=== PATIENT | female | born 1935 | race Caucasian/White ===

== ENCOUNTER 2018-03-20 11:02 | Observation (INO) ==
--- NOTE | 2018-03-20 11:35 | Emergency Department Note ---
Disposition Clinical Impression: Symptomatic bradycardia Disposition: Admitted As Inpatient Condition: Good Referrals: Daniella Cosme MD [Primary Care Provider] - Forms: ED Satisfaction Letter Time of Disposition: 13:05 Arrhythmia/Palpitations HPI - General Chief Complaint: ED Arrhythmia/Palpitations Stated Complaint: "heart races sometimes and bryanna" Time Seen by Provider: 03/20/18 11:10 Source: patient Limitations: no limitations Nursing Notes Reviewed: Yes Vital Signs Reviewed: Yes - History of Present Illness HPI Narrative: 82-year-old female presents emergency room for symptomatic bradycardia and palpitations. She states her symptoms started over the weekend where she at times can feel her heart was racing and then also felt like her heart rate was slow. She took her vital signs last night and noted her heart rate to be 40 within normal blood pressure. She felt extremely dizzy and lightheaded and did not feel well. She did not have any chest pain. She does have a history of open-heart surgery as well as a history of one stent. She does follow with focal cardiology. At this moment, she states she feels pretty well. She has no chest pain complaints. She denies any dyspnea on exertion or shortness of breath at this time but states she is very short of breath during these spells. she does take a beta john for BP. - Related Data Home Medications Medication Instructions Recorded Confirmed Aspirin [Aspirin] 81 mg PO DAILY 12/19/17 03/20/18 C,E,Zinc,Copper 11/Qifwu3g/Lut 1 cap PO DAILY 12/19/17 03/20/18 [Ocuvite Adult 50 Plus Softgel] Cetirizine HCl [Cetirizine HCl] 5 mg PO DAILY PRN 12/19/17 03/20/18 Clopidogrel [Plavix] 75 mg PO DAILY 12/19/17 03/20/18 Diclofenac Sodium [Diclofenac 1 appl TP TID 12/19/17 03/20/18 Sodium] Furosemide [Lasix] 20 mg PO DAILY 12/19/17 03/20/18 Metoprolol Succinate [Toprol Xl] 25 mg PO HS 12/19/17 03/20/18 Metoprolol Succinate [Toprol Xl] 50 mg PO QAM 12/19/17 03/20/18 Niacin [Niaspan] 2,000 mg PO HS 12/19/17 03/20/18 [place]-3 Acid Ethyl Esters [Lovaza] 2 gm PO BID 12/19/17 03/20/18 Ramipril [Altace] 5 mg PO DAILY 12/19/17 03/20/18 Allergies Allergy/AdvReac Type Severity Reaction Status Date / Time [id number] Reductase AdvReac Cramping Verified 12/19/17 12:18 Inhibitor of the [Statins] Muscles tramadol AdvReac Nausea Verified 12/19/17 12:18 All systems ED: reviewed and negative except as stated. Constitutional: Reports: as per HPI Eyes: Reports: as per HPI ENT ED: Reports: as per HPI Cardiovascular: Reports: palpitations, other (lightheaded) Respiratory: Reports: as per HPI Gastrointestinal: Denies: abdominal pain, nausea, vomiting Genitourinary: Reports: as per HPI Musculoskeletal: Reports: as per HPI Integumentary: Reports: as per HPI Neurological: Reports: as per HPI Psychiatric: Reports: as per HPI Endocrine: Reports: as per HPI Allergic/Immunologic: Reports: as per HPI Past Medical History - Past Medical History Medical history: Reports: atrial fibrillation, CHF, coronary artery disease, GERD, hyperlipidemia, hypertension Psychiatric history: Reports: no psych history - Social History Smoking Status: Never smoker Smokeless Tobacco Status: No Alcohol use: Reports: none Drug use: Reports: none Physical Exam - General Limitations: no limitations General appearance: alert - Head Head exam: atraumatic, normocephalic - Eye Eye exam: Present: normal appearance - ENT ENT exam: normal exam - Neck Neck exam: Present: normal inspection - Chest Chest inspection: Present: normal inspection, symmetric chest wall rise - Respiratory Respiratory exam: Present: normal lung sounds bilaterally. Absent: respiratory distress, wheezes - Cardiovascular Cardiovascular exam: Present: regular rate, normal rhythm, normal heart sounds - Abdominal Exam Abdominal exam: Present: soft, Non-Tender, normal bowel sounds - Extremities Exam Extremities exam: Present: normal inspection, normal capillary refill. Absent: tenderness - Neurological Exam Neurological exam: Present: alert, oriented X3 - Psychiatric Psychiatric exam: Present: normal affect - Skin Skin exam: Present: warm, dry, intact Course Vital Signs Temperature 97.5 F L 03/20/18 11:05 Pulse Rate 75 03/20/18 11:05 Respiratory Rate 16 03/20/18 11:05 Blood Pressure 176/95 03/20/18 11:05 O2 Sat by Pulse Oximetry 96 03/20/18 11:05 Temperature 97.5 F L 03/20/18 11:21 Pulse Rate 75 03/20/18 11:21 Respiratory Rate 16 03/20/18 11:21 Blood Pressure 176/95 03/20/18 11:21 O2 Sat by Pulse Oximetry 97 03/20/18 11:21 Oxygen Delivery Oxygen Delivery Room Air Arrhythmia/Palpitations - [facility] Narrative Medical decision making narrative: Workup in the ER is unremarkable. Patient will be admitted for symptomatic bradycardia. All of her lab work appears unremarkable. - Medical Records Medical records reviewed: Yes I reviewed the patient's medical records. - Lab Data Lab results reviewed: Yes I reviewed the patient's lab results. Result diagrams: 03/20/18 11:43 03/20/18 11:43 Lab Results 03/20/18 03/20/18 03/20/18 Range/Units 11:43 11:43 11:43 WBC 5.6 (4.3-11.1) K/mcL RBC 4.53 (3.82-4.97) M/mcL Hgb 13.4 (11.5-15.4) g/dL Hct 40.7 (35.3-44.9) % MCV 89.8 (83.0-100.0) fL MCH 29.6 (28.0-33.3) pg MCHC 32.9 (31.6-35.5) g/dL RDW 13.7 (11.5-14.5) % Plt Count 183 (140-400) K/mcL MPV 10.7 (9.4-12.4) fL Immature Gran % 0.2 (0-4) % Seg Neutrophils % 57.7 % Lymphocytes % 29.5 % Monocytes % 9.8 % Eosinophils % 2.3 % Basophils % 0.5 % Neutrophils # 3.2 (1.6-8.9) K/mcL Lymphocytes # 1.7 (0.6-4.6) K/mcL Monocytes # 0.6 (0.0-1.3) K/mcL Eosinophils # 0.1 (0.0-0.6) K/mcL Basophils # 0.0 (0.0-0.2) K/mcL PT 12.4 H (9.4-12.1) Seconds INR 1.1 APTT 28.9 (26.0-36.0) Seconds Sodium 139 (136-145) mEq/L Potassium 3.9 (3.5-5.1) mEq/L Chloride 103 (98-107) mEq/L Carbon Dioxide 27 (23-29) mEq/L BUN 16 (8-23) mg/dL Creatinine 0.80 (0.60-1.20) mg/dL Est GFR ( Amer) > 60 (> 60) Est GFR (Non-Af Amer) > 60 (> 60) BUN/Creatinine Ratio 20 (6-26) Glucose 113 H (70-105) mg/dL Calculated Osmolality 290 (280-300) Calcium 9.4 (8.6-10.3) mg/dL Magnesium 1.8 (1.6-2.6) mg/dL Troponin I < 0.03 (< 0.04) ng/mL TSH 3.324 (0.340-5.600) mcIU/mL - Radiology Data Radiology results reviewed: Yes I reviewed the patient's radiology results. - EKG Data EKG attestation: Yes I reviewed and interpreted this EKG. EKG results narrative: EKG shows a rate of 58. Sinus bradycardia. AK interval 195. QRS 99. QTC 413. QTC 406. No signs of acute ischemia or any changes from previous.
[2018-03-20 11:57] LABS: Basophils % 0.5 %; Eosinophils # 0.1 K/mcL (0.0-0.6); Eosinophils % 2.3 %; Hematocrit 40.7 % (35.3-44.9); Hemoglobin 13.4 g/dL (11.5-15.4); Immature Granulocytes % 0.2 % (0-4); Lymphocytes # 1.7 K/mcL (0.6-4.6); Lymphocytes % 29.5 %; Mean Corpuscular HGB Conc 32.9 g/dL (31.6-35.5); Mean Corpuscular Hemoglobin 29.6 pg (28.0-33.3); Mean Corpuscular Volume 89.8 fL (83.0-100.0); Mean Platelet Volume 10.7 fL (9.4-12.4); Monocytes # 0.6 K/mcL (0.0-1.3); Monocytes % 9.8 %; Neutrophils # 3.2 K/mcL (1.6-8.9); Platelet Count 183 K/mcL (140-400); Red Blood Count 4.53 M/mcL (3.82-4.97); Red Cell Distribution Width 13.7 % (11.5-14.5); Segmented Neutrophils % 57.7 %
[2018-03-20 12:02] LABS: INR 1.1; Prothrombin Time 12.4 Seconds (9.4-12.1)
[2018-03-20 12:05] LABS: Activated Partial Thrombo Time 28.9 Seconds (26.0-36.0)
[2018-03-20 12:20] LABS: Troponin I < 0.03 ng/mL (< 0.04)
[2018-03-20 12:34] LABS: Thyroid Stimulating Hormone 3.324 mcIU/mL (0.340-5.600)
[2018-03-20 12:47] LABS: BUN/Creatinine Ratio 20 (6-26); Blood Urea Nitrogen 16 mg/dL (8-23); Calcium 9.4 mg/dL (8.6-10.3); Carbon Dioxide 27 mEq/L (23-29); Chloride 103 mEq/L (98-107); Glucose 113 mg/dL (70-105); Magnesium 1.8 mg/dL (1.6-2.6); Osmolality,Calculated 290 (280-300); Potassium 3.9 mEq/L (3.5-5.1); Sodium 139 mEq/L (136-145); eGFR For Non-African Americans > 60 (> 60)
[2018-03-20] MEDS ORDERED: Naloxone 0.4 MG/ML INJ IVP PRN (13:37)
[2018-03-20] MEDS ORDERED: traMADol 50 MG TABLET PO PRN (13:37)
[2018-03-20] MEDS ORDERED: Acetaminophen 325 MG TABLET PO PRN (13:37)
--- NOTE | 2018-03-20 13:59 | Internal Med History&Physical ---
<Caryn Clay - Last Filed: 03/20/18 14:11> Date of Encounter: 03/20/18 Time of Encounter: 13:52 Internal Medicine - H&P: HPI Admitted From: Home Plans for Post Hospital Care: Home History of present illness: Ms. Rocha is an 82-year-old female presents emergency room for symptomatic bradycardia and palpitations. She states her symptoms started over the weekend where she at times can feel her heart was racing and then also felt like her heart rate was slow. She woke up during sleep last night feeling SOB, she took her vital signs and noted her heart rate to be 40 within normal blood pressure. She felt extremely dizzy and lightheaded and did not feel well. She did not have any chest pain. She does have a history of open-heart surgery as well as a history of one stent. She was recently examined by cardiology for palpitation. Holter and Event recorder showed paroxysmal SVT and frequent PACs, she was placed on metoprolol and then dose increased by Dr. Gonzales. At this moment, she has no chest pain complaints. She denies any dyspnea on exertion or shortness of breath at this time but states she is very short of breath during these spells At the ED, her blood pressure was slightly elevated, HR around 50 to 60s. EKG revealed an his bradycardia with frequent PACs, no ischemic change. Chest x- ray unremarkable. Due to her concerning symptoms, patient will be admitted as observation for further evaluation and management. Past Med Surg Social Fam HX - Past Medical History Medical history: atrial fibrillation, CHF, coronary artery disease, GERD, hyperlipidemia, hypertension Additional medical history: macular degeneration Psychiatric history: no psych history - Past Surgical History Additional surgical history: 1 stent, right total knee, replacement, hysterectomy - Social History Smoking Status: Never smoker Smokeless Tobacco Status: No Alcohol use: none Drug use: none Internal Medicine - H&P: Meds Aspirin [Aspirin] 81 mg PO DAILY 12/19/17 [History] C,E,Zinc,Copper 11/Uokel0i/Lut [Ocuvite Adult 50 Plus Softgel] 1 cap PO DAILY [History] Cetirizine HCl [Cetirizine HCl] 5 mg PO DAILY PRN 12/19/17 [History] Clopidogrel [Plavix] 75 mg PO DAILY 12/19/17 [History] Diclofenac Sodium [Diclofenac Sodium] 1 appl TP TID 12/19/17 [History] Furosemide [Lasix] 20 mg PO DAILY 12/19/17 [History] Metoprolol Succinate [Toprol Xl] 25 mg PO HS 12/19/17 [History] Metoprolol Succinate [Toprol Xl] 50 mg PO QAM 12/19/17 [History] Niacin [Niaspan] 2,000 mg PO HS 12/19/17 [History] [place]-3 Acid Ethyl Esters [Lovaza] 2 gm PO BID 12/19/17 [History] Ramipril [Altace] 5 mg PO DAILY 12/19/17 [History] 3 Allergy/AdvReac Type Severity Reaction Status Date / Time [id number] Reductase AdvReac Cramping Verified 03/20/18 13:06 Inhibitor of the [Statins] Muscles tramadol AdvReac Nausea Verified 03/20/18 13:06 All Systems PM: A 10-system review of systems was performed and is negative for pertinent findings except as documented above in the HPI. Review of systems: REVIEW OF SYSTEMS: CONSTITUTIONAL: No weight loss, fever, chills, weakness or fatigue. HEENT: Eyes: No visual loss, blurred vision, double vision or yellow sclerae. Ears, Nose, Throat: No hearing loss, sneezing, congestion, runny nose or sore throat. SKIN: No rash or itching. CARDIOVASCULAR: see HPI. RESPIRATORY: No shortness of breath, cough or sputum. GASTROINTESTINAL: No anorexia, nausea, vomiting or diarrhea. No abdominal pain or blood. GENITOURINARY: No dysuria, urgency, or frequency. NEUROLOGICAL: No headache, dizziness, syncope, paralysis, ataxia, numbness or tingling in the extremities. No change in bowel or bladder control. MUSCULOSKELETAL: No muscle, back pain, joint pain or stiffness. HEMATOLOGIC: No anemia, bleeding or bruising. LYMPHATICS: No enlarged nodes. No history of splenectomy. PSYCHIATRIC: No history of depression or anxiety. ENDOCRINOLOGIC: No reports of sweating, cold or heat intolerance. No polyuria or polydipsia. - Constitutional Vitals: Temp Pulse Resp BP Pulse Ox 97.5 F L 75 14 142/68 97 03/20/18 11:21 03/20/18 11:21 03/20/18 13:33 03/20/18 13:33 03/20/18 11:21 General appearance: Present: cooperative, A&O X 3, answers questions appropriately Exam: PHYSICAL EXAMINATION: GENERAL APPEARANCE: The patient is alert, oriented and in no acute distress. HEENT: Head is normocephalic. The sinuses are nontender. Pupils are equal and reactive. The nares are patent. Oropharynx clear without lesions. NECK: Supple without lymphadenopathy. HEART: irregular rate and rhythm. LUNGS: No crackles or wheezes are heard. ABDOMEN: Soft, nontender, nondistended with good bowel sounds heard. Inguinal area is normal. EXTREMITIES: Without cyanosis, clubbing or edema. NEUROLOGICAL: Gross nonfocal. SKIN: Warm and dry without any rash. Internal Med - H&P Results - Labs CBC & Chem 7: 03/20/18 11:43 03/20/18 11:43 - Assessment and plan (1) Symptomatic bradycardia Current Visit: Yes Status: Acute Assessment and plan: 82-year-old female with history of CAD, status post open heart surgery and a stent placement, arrhythmia, hypertension, and gout presented with an episode of symptomatic bradycardia. Patient underwent workup for palpitation recently. Holter monitor and event recorder showed episodic SVT with frequent PACs. She was seen by cardiology, metoprolol was started, and dose was adjusted due to tachycardia. She presented with another episode of shortness of breath and palpitation, HR reported at 40s. - Unclear the etiology at this point, it could be medication side effect, metoprolol overdose, or tachy-brachy syndrome. - Last TTE 07/14 showed EF 60%, moderate LVDD, and trivial TR. - Event recorder 08/15 and Holter monitor 10/13 showed frequent SVTs and PACs. - Troponin was on hold, will continue cycle troponin to rule out ACS, TTE will be repeated. - Cardiology consult. (2) CAD (coronary artery disease) Current Visit: No Status: Acute Assessment and plan: Continue Plavix, hold metoprolol for now due to bradycardia, continue IRAIDA inhibitor. Qualifiers: Coronary Disease-Associated Artery/Lesion type: [place] artery [place] vs. transplanted heart: [place] heart Associated angina: without angina Qualified Code(s): I25.10 - Atherosclerotic heart disease of [place] coronary artery without angina pectoris (3) HTN (hypertension) Current Visit: No Status: Chronic Assessment and plan: BP slightly elevated at this time, continue IRAIDA inhibitor, hold metoprolol, continue Lasix. Adjust medications if BP constantly elevated. Qualifiers: Hypertension type: essential hypertension Qualified Code(s): I10 - Essential (primary) hypertension (4) Gout Current Visit: No Status: Chronic Assessment and plan: Patient only NSAIDs for gout, will check urinalysis acid level, may need allopurinol and colchicine if indicated. Qualifiers: Gout site: foot Gout etiology: unspecified cause Chronicity: chronic Laterality: right Qualified Code(s): M1A.0710 - Idiopathic chronic gout, right ankle and foot, without tophus (tophi) (5) DVT prophylaxis Current Visit: Yes Status: Acute Assessment and plan: Heparin subcutaneous. - Time Spent With Patient Total time spent is greater than 50% in coordination of care (as documented) at patient's floor/unit and/or counseling patient: Greater than 35 minutes <Trini Crawford - Last Filed: 03/20/18 14:53> Date of Encounter: 03/20/18 Internal Medicine - H&P: HPI History of present illness: Ms. Rocha is a 82 year old female All Systems PM: A 10-system review of systems was performed and is negative for pertinent findings except as documented above in the HPI. - Constitutional Vitals: Temp Pulse Resp BP Pulse Ox 97.5 F L 75 14 142/68 97 03/20/18 11:21 03/20/18 11:21 03/20/18 13:33 03/20/18 13:33 03/20/18 11:21 Internal Med - H&P Results - Labs CBC & Chem 7: 03/20/18 11:43 03/20/18 11:43 - Assessment and plan (1) Symptomatic bradycardia Current Visit: Yes Status: Acute (2) CAD (coronary artery disease) Current Visit: No Status: Acute Qualifiers: Coronary Disease-Associated Artery/Lesion type: [place] artery [place] vs. transplanted heart: [place] heart Associated angina: without angina Qualified Code(s): I25.10 - Atherosclerotic heart disease of [place] coronary artery without angina pectoris (3) HTN (hypertension) Current Visit: No Status: Chronic Qualifiers: Hypertension type: essential hypertension Qualified Code(s): I10 - Essential (primary) hypertension (4) Gout Current Visit: No Status: Chronic Qualifiers: Gout site: foot Gout etiology: unspecified cause Chronicity: chronic Laterality: right Qualified Code(s): M1A.0710 - Idiopathic chronic gout, right ankle and foot, without tophus (tophi) (5) DVT prophylaxis Current Visit: Yes Status: Acute - Time Spent With Patient Total time spent is greater than 50% in coordination of care (as documented) at patient's floor/unit and/or counseling patient: - Attending Attestation Plan of care and medical decision-making was reviewed with the Nurse Practitioner. I agree with the documented findings, disposition and treatment plan as described except to any changes set forth below.
--- NOTE | 2018-03-20 15:15 | Cardiology Consult Note ---
<Vincent Torres R - Last Filed: 03/20/18 18:40> Date of Encounter: 03/20/18 Time of Encounter: 15:13 Assessment and Plan (1) Bradycardia Current Visit: Yes Status: Acute Pt reports she initially had palpitations and felt tachycardic, so she took an extra 25mg Toprol XL at 2AM. After, she felt her heart "quivering" and HR felt low, was lightheaded/dizzy. Checked HR and was reportedly in the 40s and presented to ED, but still took another 25mg of Toprol after the 2AM dose. HR in ED 50s. Pt is bradycardic due to taking extra doses of BB. She is supposed to be on Toprol XL 50mg QAM and 25mg QPM. Last dose was 25mg this AM prior to coming to ED. Electrolytes and TSH WNL. Currently not on telemetry, but has been ordered to be put on telemetry for further monitoring. Hold BB for now. Anticipate switching to low dose CCB tomorrow--Cardizem CD 120mg daily if HR improves. HR currently 50s. TTE 06/2017 EF preserved. Recheck TTE. Hx is complicated given she has also seen cardiology in [place]. Reports at some point, EP evaluation was discussed and mention of ablation. Suspect this is due to SVT, brief runs on Holter 09/2017. Pt had a TIA earlier this year as well. Was briefly put on Eliquis for concern for A-Fib, though this was never confirmed and Eliquis was stopped once Holter was reviewed. Pt would benefit from a loop recorder for nursing home monitoring for arrhythmias given her frequent palpitations, PACs, and hx of possible TIA. Discussed loop insertion and pt declines. Recommend outpt EP evaluation. (2) PAC (premature atrial contraction) Current Visit: Yes Status: Acute Known frequent PACs, >10,000 in 48 hr period on Holter in September. Home BB included Toprol XL 50mg QAM and 25mg QPM. Presented bradycardic after taking extra BB doses. BB stopped. HR is currently 56. If HR improves, will plan to start low dose CCB instead--Cardizem CD 120mg daily. (3) CAD (coronary artery disease) Current Visit: No Status: Acute Hx of CABG in 2003 and PCI in 2006. Denies chest pain. Initial troponin negative. Continue ASA, Plavix, ACEi. No BB due to bradycardia. Reports muscle aches with statins. Qualifiers: Coronary Disease-Associated Artery/Lesion type: [place] artery [place] vs. transplanted heart: [place] heart Associated angina: without angina Qualified Code(s): I25.10 - Atherosclerotic heart disease of [place] coronary artery without angina pectoris Discussion w patient/family: The assessment and plan as outlined above was discussed with the patient and/or family members who expressed understanding and agreement. All questions were answered. Thank you for involving us in the care of your patient. Please call with any questions. I will discuss all the above with Dr. London and make changes as necessary. History of Present Illness Consult date: 03/20/18 Consult reason: Bradycardia Chief complaint: dizziness, lightheadedness, palpitations History of present illness: Ms. Rocha is a 82 year old female with documented PMH of TIA, CAD s/p 4V CABG in 2003 and PCI in 2006, PACs, presented to emergency room for bradycardia and palpitations. She states her symptoms started over the weekend where she at times can feel her heart was racing and then also felt like her heart rate was slow. She woke up during sleep last night feeling having palpitations, took an extra Toprol XL dose. Then she felt short of breath, dizzy and lightheaded. She checked vitals and HR was 40s and came to ED. HR was 50s in ED. Cardiology consulted for further recs. Records reviewed and pt was seen by Dr. Santos in September. Toprol was increased to 50mg QAM and 25mg PM at that time due to frequent PACs. Recent Holter showed PACs and short runs of SVT. Prior CV testin hr Holter 10/17/17: Underlying rhythm is sinus. Infrequent ventricular ectopy. Frequent supraventricular ectopy averaging 229 beats/hour. Short runs of SVT. Reported symptom corresponds to sinus rhythm. Event Monitor 08/29/17: Baseline rhythm normal sinus. Occasional PACs. Symptoms correlate with PACs. TTE 07/02/17: LVEF 60-65%. Normal LV chamber size, wall thickness and function. Atypical septal motion consistent with post-operative status. Moderate left ventricular diastolic dysfunction. Normal right ventricular structure and function. Mild tricuspid regurgitation. Mild pulmonary hypertension. Past Med Surg Social Fam HX - Past Medical History Medical history: arthritis, CHF, coronary artery disease, GERD, hyperlipidemia, hypertension Additional medical history: macular degeneration Psychiatric history: no psych history - Past Surgical History Additional surgical history: 1 stent, right total knee, replacement, hysterectomy - Social History Smoking Status: Never smoker Smokeless Tobacco Status: No Alcohol use: none Drug use: none Medications and Allergies Aspirin [Aspirin] 81 mg PO DAILY 12/19/17 [History] C,E,Zinc,Copper 11/Iwyer8v/Lut [Ocuvite Adult 50 Plus Softgel] 1 cap PO DAILY [History] Cetirizine HCl [Cetirizine HCl] 5 mg PO DAILY PRN 12/19/17 [History] Clopidogrel [Plavix] 75 mg PO DAILY 12/19/17 [History] Diclofenac Sodium [Diclofenac Sodium] 1 appl TP TID 12/19/17 [History] Furosemide [Lasix] 20 mg PO DAILY 12/19/17 [History] Metoprolol Succinate [Toprol Xl] 25 mg PO HS 12/19/17 [History] Metoprolol Succinate [Toprol Xl] 50 mg PO QAM 12/19/17 [History] Niacin [Niaspan] 2,000 mg PO HS 12/19/17 [History] [place]-3 Acid Ethyl Esters [Lovaza] 2 gm PO BID 12/19/17 [History] Ramipril [Altace] 5 mg PO DAILY 12/19/17 [History] 3 Allergy/AdvReac Type Severity Reaction Status Date / Time [id number] Reductase AdvReac Cramping Verified 03/20/18 13:06 Inhibitor of the [Statins] Muscles tramadol AdvReac Nausea Verified 03/20/18 13:06 All Systems Review: The remainder of the systems were reviewed and are negative - Cardiovascular Cardiovascular: as per HPI, dyspnea on exertion, irregular heart rhythm, lightheadedness, palpitations, rapid heart rate, slow heart rate - Respiratory Respiratory: dyspnea - Neurological Neurological: dizziness Physical Examination Vital Signs, Last 4 Hours Resp BP 03/20/18 13:33 14 142/68 Vital Signs Temp Pulse Resp BP Pulse Ox 03/20/18 15:17 97.7 F 58 14 129/81 95 03/20/18 13:33 14 142/68 03/20/18 11:21 97.5 F L 75 16 176/95 97 03/20/18 11:18 97 03/20/18 11:05 97.5 F L 75 16 176/95 96 Intake and Output 03/19/18 03/20/18 03/20/18 23:59 07:59 15:59 Intake Total 0 / 0 Output Total 0 / 0 Balance 0 / 0 Intake: Oral 0 / 0 Output: Urine 0 / 0 Other: Weight 86.183 kg Patient Weight 03/20/18 23:59 Weight 86.183 kg General: Conversant, No Apparent Distress HEENT: Atraumatic, Normocephaly, Mucus Membranes Moist Neck: No JVD, Normal carotid pulses Cardiac: Reg Rate and Rhythm, Normal S1 and S2, No Murmur Lungs: Normal Breath Sounds, No Wheeze, Rales, Rhonchi Neuro: Alert and responsive, No focal deficits noted Abdomen: Soft, Non-Tender Skin: No rashes noted on visualized skin Musculoskeletal: No Chest Wall Tenderness Extremities: No Clubbing, No Cyanosis, No Edema, Normal Pulses Results 03/20/18 11:43 03/20/18 11:43 Short CBC 03/20/18 Range/Units 11:43 WBC 5.6 (4.3-11.1) K/mcL Hgb 13.4 (11.5-15.4) g/dL Hct 40.7 (35.3-44.9) % Plt Count 183 (140-400) K/mcL Neutrophils # 3.2 (1.6-8.9) K/mcL BMP 03/20/18 Range/Units 11:43 Sodium 139 (136-145) mEq/L Potassium 3.9 (3.5-5.1) mEq/L Chloride 103 (98-107) mEq/L Carbon Dioxide 27 (23-29) mEq/L BUN 16 (8-23) mg/dL Creatinine 0.80 (0.60-1.20) mg/dL Glucose 113 H (70-105) mg/dL Calcium 9.4 (8.6-10.3) mg/dL Cardiac Enzymes 03/20/18 Range/Units 11:43 Troponin I < 0.03 (< 0.04) ng/mL Impressions Chest X-Ray 03/20/18 11:26 IMPRESSION: No acute cardiopulmonary disease D/ / Bo Acosta MD / Bo Acosta MD Interpreting Provider: Bo Acosta MD Active Medications Acetaminophen (Tylenol) 650 mg PO Q6HR PRN PRN Reason: Mild Pain/Fever Stop: 09/19/18 13:38 Aspirin (Aspirin) 81 mg PO DAILY [facility] Stop: 09/20/18 09:01 Clopidogrel Bisulfate (Plavix) 75 mg PO DAILY [facility] Stop: 09/20/18 09:01 Furosemide (Lasix) 20 mg PO DAILY [facility] Stop: 09/20/18 09:01 Heparin Sodium (Porcine) (Heparin) 5,000 unit SQ Q12HCO [facility] Stop: 09/19/18 18:01 Lisinopril (Zestril) 20 mg PO DAILY [facility] Stop: 09/20/18 09:01 Loratadine (Claritin) 10 mg PO DAILY [facility] Stop: 09/20/18 09:01 Naloxone HCl (Narcan) 0.4 mg IVP Q2MIN PRN PRN Reason: SEE COMMENTS Stop: 09/19/18 13:38 Niacin (Niaspan) 2,000 mg PO HS [facility] Stop: 09/19/18 21:01 - Imaging and Cardiology Echo: report reviewed Holter: report reviewed - EKG Interpretation EKG results cardiology: personally reviewed (Sinus shirley HR 58) Consult Discharge Plan - Plan Referrals: Daniella Cosme MD [Primary Care Provider] - <April London - Last Filed: 03/20/18 19:17> Date of Encounter: 03/20/18 - Attending Attestation I examined this patient and my medical decision-making was reviewed with the TALENT ADVISOR. I agree with the documented findings, disposition and treatment plan as described. Ms. Rocha presents with a constellation of symptoms including palpitations, sob, lightheadedness during nighttime this morning. She took an extra dose of Toprol around 2AM. Became concerned that HR was around 40bpm and presented to ER. HR in ER 50's. No acute ECG findings. Patient alert, conversant and oriented at bedside. Vital signs stable. No concerning exam abnormalities. Normal TSH, electrolytes. Impression/Plan: 1. Palpitations: Known atrial ectopy without documentation of atrial fibrillation. As an outpatient was started on Eliquis then stopped due to lack of evidence of AFIB. Some question of TIA earlier this year but patient states no definitive evidence at outside hospital. At this time, appears reasonable to offer a Loop recorder to the patient given questionable TIA and frequent PACs and risk for AFIB. She declines at this time but would like to follow up with Dr. Ibrahima Deng as outpatient for consultation. For now, we will stop Toprol in favor of cardizem since Toprol may not have been effective at treating her symptoms. Await echo. Continue antiplatelet. Assessment and Plan Discussion w patient/family: The assessment and plan as outlined above was discussed with the patient and/or family members who expressed understanding and agreement. All questions were answered. Thank you for involving us in the care of your patient. Please call with any questions. History of Present Illness History of present illness: Ms. Rocha is a 82 year old female All Systems Review: The remainder of the systems were reviewed and are negative Physical Examination Vital Signs, Last 4 Hours Temp Pulse Resp BP Pulse Ox 03/20/18 15:17 97.7 F 58 14 129/81 95 Results 03/20/18 11:43 03/20/18 11:43 Lab Results 03/20/18 17:30 Troponin I < 0.03
[2018-03-20] MEDS: *HR* Heparin 5,000 UNIT/ML VIAL SQ SCH (17:42)
[2018-03-20] MEDS ORDERED: Niacin (24 HR) 500 MG TAB.ER.24H PO SCH (21:00)
[2018-03-20] MEDS ORDERED: NON-FORMULARY MEDICATION 1 EACH EACH (Omega-3 Acid Ethyl Esters [Lovaza] 2 GM) PO SCH (21:00)
[2018-03-21 00:44] LABS: Basophils % 0.6 %; Eosinophils # 0.2 K/mcL (0.0-0.6); Eosinophils % 2.9 %; Hematocrit 40.6 % (35.3-44.9); Hemoglobin 13.6 g/dL (11.5-15.4); Immature Granulocytes % 0.3 % (0-4); Lymphocytes # 2.8 K/mcL (0.6-4.6); Lymphocytes % 39.4 %; Mean Corpuscular HGB Conc 33.5 g/dL (31.6-35.5); Mean Corpuscular Hemoglobin 30.3 pg (28.0-33.3); Mean Corpuscular Volume 90.4 fL (83.0-100.0); Mean Platelet Volume 10.6 fL (9.4-12.4); Monocytes # 0.7 K/mcL (0.0-1.3); Monocytes % 9.4 %; Neutrophils # 3.4 K/mcL (1.6-8.9); Platelet Count 190 K/mcL (140-400); Red Blood Count 4.49 M/mcL (3.82-4.97); Red Cell Distribution Width 13.8 % (11.5-14.5); Segmented Neutrophils % 47.4 %
[2018-03-21 00:51] LABS: BUN/Creatinine Ratio 18 (6-26); Blood Urea Nitrogen 18 mg/dL (8-23); Calcium 9.5 mg/dL (8.6-10.3); Carbon Dioxide 29 mEq/L (23-29); Chloride 103 mEq/L (98-107); Glucose 120 mg/dL (70-105); Osmolality,Calculated 287 (280-300); Potassium 4.2 mEq/L (3.5-5.1); Sodium 137 mEq/L (136-145); eGFR For Non-African Americans 52 (> 60)
[2018-03-21] MEDS: *HR* Heparin 5,000 UNIT/ML VIAL SQ SCH (05:49)
[2018-03-21] MEDS ORDERED: Lisinopril 20 MG TABLET PO SCH (09:00)
[2018-03-21] MEDS ORDERED: Aspirin 81 MG TAB.CHEW PO SCH (09:00)
[2018-03-21] MEDS ORDERED: Loratadine 10 MG TABLET PO SCH (09:00)
[2018-03-21] MEDS ORDERED: Furosemide 20 MG TABLET PO SCH (09:00)
[2018-03-21] MEDS ORDERED: NON-FORMULARY MEDICATION 1 EACH EACH (C,E,Zinc,Copper 11/Omega3s/Lut [Ocuvite Adult 50 Plu PO SCH (09:00)
--- NOTE | 2018-03-21 09:07 | Electrocardiograph Report ---
[facility] Test Date: 2018-03-20 Pat Name: Suleman Rohca Department: EXAMC2 Room: 3A32 Gender: F General Sales Manager: : 1935 Requested By: Bryce Faulkner Order Number: [id number] Reading MD: Julian Rubin Measurements Intervals [place] Rate: 58 P: 38 CA: 195 QRS: 70 QRSD: 99 T: -29 QT: 413 QTc: 406 Interpretive Statements Sinus rhythm Borderline T abnormalities, inferior leads Electronically Signed On 03-21-2018 9:06:04 EDT by Julian Rubin
[2018-03-21] MEDS ORDERED: Diltiazem CD (24hr) 120 MG CAPSULE PO SCH (09:45)
--- NOTE | 2018-03-21 11:00 | Internal Med Progress Note ---
Hospitalist Progress Note - Encounter Date of Encounter: 03/21/18 Time of Encounter: 10:55 - Subjective Interval History: Patient had a 1 episode of tachyarrhythmia this morning, telemetry tracing showed SVT with HR 140-170. She reported palpitation and dizziness during the event. She has no chest pain, shortness of breath, or syncope at that time. - Exam Vitals: Temp Pulse Resp BP Pulse Ox 97.8 F 124 16 165/109 96 03/21/18 06:55 03/21/18 06:55 03/21/18 06:55 03/21/18 06:55 03/21/18 06:55 Exam: PHYSICAL EXAMINATION: GENERAL APPEARANCE: The patient is alert, oriented and in no acute distress. HEENT: Head is normocephalic. The sinuses are nontender. Pupils are equal and reactive. The nares are patent. Oropharynx clear without lesions. NECK: Supple without lymphadenopathy. HEART: irregular rate and rhythm. LUNGS: No crackles or wheezes are heard. ABDOMEN: Soft, nontender, nondistended with good bowel sounds heard. Inguinal area is normal. EXTREMITIES: Without cyanosis, clubbing or edema. NEUROLOGICAL: Gross nonfocal. SKIN: Warm and dry without any rash. - Assessment and Plan (1) Symptomatic bradycardia Current Visit: Yes Status: Acute Assessment and Plan: 82-year-old female with history of CAD, status post open heart surgery and a stent placement, arrhythmia, hypertension, and gout presented with an episode of symptomatic bradycardia. Patient underwent workup for palpitation recently. Holter monitor and event recorder showed episodic SVT with frequent PACs. She was seen by cardiology, metoprolol was started, and dose was adjusted due to tachycardia. She presented with another episode of shortness of breath and palpitation, HR reported at 40s. - Unclear the etiology at this point, it could be medication side effect, metoprolol overdose, or tachy-brachy syndrome. - Last TTE 07/14 showed EF 60%, moderate LVDD, and trivial TR. repeat ECHO essentially no change. - Event recorder 08/15 and Holter monitor 10/13 showed frequent SVTs and PACs. tele tracing this morning showed another episode of pSVT with symptoms of palpitation and dizziness. - Metoprolol was changed to Cardizem per cardiology. - management option with ablation and loop recorder discussed with pt by cardiology, appreciate help (2) CAD (coronary artery disease) Current Visit: No Status: Acute Assessment and Plan: Continue asa and Plavix, hold metoprolol for now due to bradycardia, continue IRAIDA inhibitor. (3) HTN (hypertension) Current Visit: No Status: Chronic Assessment and Plan: BP slightly elevated, continue IRAIDA inhibitor, continue Lasix. metoprolol changed to cardizem per cards. (4) Gout Current Visit: No Status: Chronic Assessment and Plan: Uric acid about 10, allupurinol started, if pain has pain, may use NSAID or colchcine. (5) DVT prophylaxis Current Visit: Yes Status: Acute Assessment and Plan: Heparin subcutaneous. - Time Spent with Patient Total time spent is greater than 50% in coordination of care (as documented) at patient's floor/unit and/or counseling patient: Greater than 35 minutes Plan of Care Discussed with: patient Internal Medicine: Result - Labs CBC & Chem 7: 03/21/18 00:16 03/21/18 00:16 Labs: Short CBC 03/21/18 Range/Units 00:16 WBC 7.2 (4.3-11.1) K/mcL Hgb 13.6 (11.5-15.4) g/dL Hct 40.6 (35.3-44.9) % Plt Count 190 (140-400) K/mcL Neutrophils # 3.4 (1.6-8.9) K/mcL BMP 03/21/18 00:16 Sodium 137 Potassium 4.2 Chloride 103 Carbon Dioxide 29 BUN 18 Creatinine 1.02 Glucose 120 H Calcium 9.5 Cardiac Enzymes 03/20/18 03/21/18 Range/Units 17:30 00:16 Troponin I < 0.03 < 0.03 (< 0.04) ng/mL - ABG Interpretation ABG results: PT/INR, D-dimer PT 12.4 Seconds (9.4-12.1) H 03/20/18 11:43 - Impressions Impressions Echocardiogram 03/21/18 07:00 Impressions: LVEF 60-65%. Normal LV chamber size, wall thickness and function. Moderate left ventricular diastolic dysfunction. Normal right ventricular structure and function. Mild aortic regurgitation. No evidence of pulmonary hypertension. Left Ventricular Wall Motion: Rest Echo Findings All wall segments showed normal motion. Findings: Study Quality * Technically adequate exam. ECG Findings * Normal sinus rhythm. Left Ventricle * LVEF 60-65%. * Normal LV chamber size, wall thickness and function. * Moderate left ventricular diastolic dysfunction. Right Ventricle * Normal right ventricular structure and function. Left Atrium * Mildly dilated left atrium. Right Atrium * Mildly dilated right atrium. Aortic Valve * Trileaflet aortic valve. * Mildly sclerotic aortic valve leaflets. * Mild aortic regurgitation. * No aortic stenosis. Mitral Valve * Mildly thickened mitral valve leaflets. * No mitral regurgitation. * No mitral stenosis. Tricuspid Valve * Normal tricuspid valve structure and function. * Trace tricuspid regurgitation. * No evidence of pulmonary hypertension. Pulmonic Valve * Normal pulmonic valve structure. * Mild pulmonic regurgitation. Aorta * Normally sized aortic root. Pericardium * The pericardium appears normal. IVC * Normal IVC dimensions and inspiratory collapse. Pulmonary Artery * Normal visualized portions of the main pulmonary artery. Consult Discharge Plan - Plan Referrals: Daniella Cosme MD [Primary Care Provider] - (2) CAD (coronary artery disease) Qualifiers: Coronary Disease-Associated Artery/Lesion type: [place] artery [place] vs. transplanted heart: [place] heart Associated angina: without angina Qualified Code(s): I25.10 - Atherosclerotic heart disease of [place] coronary artery without angina pectoris (3) HTN (hypertension) Qualifiers: Hypertension type: essential hypertension Qualified Code(s): I10 - Essential (primary) hypertension (4) Gout Qualifiers: Gout site: foot Gout etiology: unspecified cause Chronicity: chronic Laterality: right Qualified Code(s): M1A.0710 - Idiopathic chronic gout, right ankle and foot, without tophus (tophi)
--- NOTE | 2018-03-21 11:52 | Cardiology Progress Note ---
Date of Encounter: 03/21/18 Time of Encounter: 12:00 Assessment and Plan (1) Bradycardia Current Visit: Yes Status: Acute Pt reports she initially had palpitations and felt tachycardic, so she took an extra 25mg Toprol XL at 2AM. After, she felt her heart "quivering" and HR felt low, was lightheaded/dizzy. Checked HR and was reportedly in the 40s and presented to ED, but still took another 25mg of Toprol after the 2AM dose. HR in ED 50s. Pt is bradycardic due to taking extra doses of BB. She is supposed to be on Toprol XL 50mg QAM and 25mg QPM. Last dose was 25mg this AM prior to coming to ED. Electrolytes and TSH WNL. Currently not on telemetry, but has been ordered to be put on telemetry for further monitoring. Hold BB for now. HR stable overnight, episodes of ST noted (max 140), will start Cardizem 120 mg daily now. TTE 06/2017 EF preserved. TTE this admission shows preserved LVEF with normal wall motion. Hx is complicated given she has also seen cardiology in [place]. Reports at some point, EP evaluation was discussed and mention of ablation. Suspect this is due to SVT, brief runs on Holter 09/2017. Pt had a TIA earlier this year as well. Was briefly put on Eliquis for concern for A-Fib, though this was never confirmed and Eliquis was stopped once Holter was reviewed. 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 She will consider loop implant in the outpatient setting, will arrange for follow-up with EP. (2) CAD (coronary artery disease) Current Visit: No Status: Acute Hx of CABG in 2003 and PCI in 2006. Denies chest pain. Initial troponin negative. Continue ASA, Plavix, ACEi. No BB due to bradycardia. Reports muscle aches with statins. Qualifiers: Coronary Disease-Associated Artery/Lesion type: [place] artery [place] vs. transplanted heart: [place] heart Associated angina: without angina Qualified Code(s): I25.10 - Atherosclerotic heart disease of [place] coronary artery without angina pectoris (3) PAC (premature atrial contraction) Current Visit: Yes Status: Acute Known frequent PACs, >10,000 in 48 hr period on Holter in September. Home BB included Toprol XL 50mg QAM and 25mg QPM. Presented bradycardic after taking extra BB doses. BB stopped, will start Cardizem 120 mg daily. Frequent PACs noted per telemetry review. Discussion w patient/family: The assessment and plan as outlined above was discussed with the patient and/or family members who expressed understanding and agreement. All questions were answered. Thank you for involving us in the care of your patient. Please call with any questions. Subjective Principal diagnosis: Palpitations Interval history: Seen and examined. C/o palpitations this morning--ST noter per telemetry review. Avg HR=64 overnight. Results of TTE reviewed with patient. Otherwise, no CV complaints. Objective Vital Signs, Last 4 Hours Pulse Resp BP 03/21/18 09:50 71 16 134/71 General: Conversant, No Apparent Distress HEENT: Atraumatic, Normocephaly Cardiac: Reg Rate and Rhythm, Normal S1 and S2 Lungs: Normal Breath Sounds Neuro: Alert and responsive Abdomen: Soft Musculoskeletal: No Chest Wall Tenderness Extremities: No Edema, Normal Pulses Results 03/21/18 00:16 03/21/18 00:16 Lab Results 03/20/18 03/21/18 03/21/18 17:30 00:16 00:16 WBC 7.2 Hgb 13.6 Hct 40.6 Plt Count 190 Sodium Potassium Chloride Carbon Dioxide BUN Creatinine Glucose Calcium Troponin I < 0.03 < 0.03 03/21/18 00:16 WBC Hgb Hct Plt Count Sodium 137 Potassium 4.2 Chloride 103 Carbon Dioxide 29 BUN 18 Creatinine 1.02 Glucose 120 H Calcium 9.5 Troponin I Active Medications Acetaminophen (Tylenol) 650 mg PO Q6HR PRN PRN Reason: Mild Pain/Fever Stop: 09/19/18 13:38 Last Admin: 03/20/18 21:36 Dose: 650 mg Allopurinol (Zyloprim) 100 mg PO DAILY [facility] Stop: 09/20/18 11:01 Last Admin: 03/21/18 12:00 Dose: 100 mg Aspirin (Aspirin) 81 mg PO DAILY [facility] Stop: 09/20/18 09:01 Last Admin: 03/21/18 09:55 Dose: 81 mg Clopidogrel Bisulfate (Plavix) 75 mg PO DAILY [facility] Stop: 09/20/18 09:01 Last Admin: 03/21/18 09:55 Dose: 75 mg Diltiazem HCl (Cardizem Cd) 120 mg PO DAILY [facility] Stop: 09/20/18 09:46 Last Admin: 03/21/18 09:55 Dose: 120 mg Furosemide (Lasix) 20 mg PO DAILY [facility] Stop: 09/20/18 09:01 Last Admin: 03/21/18 09:55 Dose: 20 mg Heparin Sodium (Porcine) (Heparin) 5,000 unit SQ Q12HCO [facility] Stop: 09/19/18 18:01 Last Admin: 03/21/18 05:49 Dose: 5,000 unit Lisinopril (Zestril) 20 mg PO DAILY [facility] Stop: 09/20/18 09:01 Last Admin: 03/21/18 09:55 Dose: 20 mg Loratadine (Claritin) 10 mg PO DAILY [facility] Stop: 09/20/18 09:01 Last Admin: 03/21/18 09:55 Dose: 10 mg Naloxone HCl (Narcan) 0.4 mg IVP Q2MIN PRN PRN Reason: SEE COMMENTS Stop: 09/19/18 13:38 Niacin (Niaspan) 2,000 mg PO HS [facility] Stop: 09/19/18 21:01 Last Admin: 03/20/18 20:15 Dose: 2,000 mg - Imaging and Cardiology Echo: report reviewed - EKG Interpretation EKG results cardiology: personally reviewed Consult Discharge Plan - Plan Referrals: Daniella Cosme MD [Primary Care Provider] -
[2018-03-21 15:21] VITALS: BP 150/82
--- NOTE | 2018-03-21 16:05 | Discharge Summary ---
- NOTES TO OUTPATIENT PROVIDER Notes to Outpatient Provider: f/u with PCP within a week. f/u with cardiology within a week. Orders not resulted at time of discharge: Pending orders 03/21/18 06:00 ECG 12 lead ECG [ECG] AM 0600 03/22/18 04:00 BMP [Basic Metabolic Panel] AM 0400 Date of Encounter: 03/21/18 Time of Encounter: 16:01 - Discharge Diagnosis (1) Symptomatic bradycardia Priority: Primary Status: Acute (2) CAD (coronary artery disease) Priority: Secondary Status: Acute Qualifiers: Coronary Disease-Associated Artery/Lesion type: [place] artery [place] vs. transplanted heart: [place] heart Associated angina: without angina Qualified Code(s): I25.10 - Atherosclerotic heart disease of [place] coronary artery without angina pectoris (3) HTN (hypertension) Priority: Secondary Status: Chronic Qualifiers: Hypertension type: essential hypertension Qualified Code(s): I10 - Essential (primary) hypertension (4) Gout Priority: Secondary Status: Chronic Qualifiers: Gout site: foot Gout etiology: unspecified cause Chronicity: chronic Laterality: right Qualified Code(s): M1A.0710 - Idiopathic chronic gout, right ankle and foot, without tophus (tophi) (5) DVT prophylaxis Priority: Primary Status: Acute Hospital course: Ms. Rocha is an 82-year-old female presents emergency room for symptomatic bradycardia and palpitations. She states her symptoms started over the weekend where she at times can feel her heart was racing and then also felt like her heart rate was slow. She woke up during sleep last night feeling SOB, she took her vital signs and noted her heart rate to be 40 within normal blood pressure. She felt extremely dizzy and lightheaded and did not feel well. She did not have any chest pain. She does have a history of open-heart surgery as well as a history of one stent. She was recently examined by cardiology for palpitation. Holter and Event recorder showed paroxysmal SVT and frequent PACs, she was placed on metoprolol and then dose increased by Dr. Gonzales. At this moment, she has no chest pain complaints. She denies any dyspnea on exertion or shortness of breath at this time but states she is very short of breath during these spells At the ED, her blood pressure was slightly elevated, HR around 50 to 60s. EKG revealed an his bradycardia with frequent PACs, no ischemic change. Chest x- ray unremarkable. Due to her concerning symptoms, patient will be admitted as observation for further evaluation and management. She had another episode of SVT on the second day. Cardiology changed metoprolol to cardizem and pt HR has stablized at 60-70. ablation and loop recorder were recommended and discussed with patient by cardiology. cardiology OK pt go home with f/u with them. Pt will be discharged home today. She will f/u with cards and PCP within a week. Discharge discussed with: patient Time spent discussing smoking cessation with patient: more than 10 minutes - Time Spent with Patient Total time spent providing and/or coordinating discharge services: Greater than 30 minutes - Discharge Medications Prescriptions: Allopurinol [Zyloprim 100 MG] 100 mg PO DAILY #30 tablet Diltiazem CD (24hr) [Cardizem CD] 120 mg PO DAILY #30 cap.er.24h Home Medications: Aspirin 81 mg PO DAILY 12/19/17 [History] C,E,Zinc,Copper 11/Rhtfv4r/Lut [Ocuvite Adult 50 Plus Softgel] 1 cap PO DAILY [History] Cetirizine HCl 5 mg PO DAILY PRN 12/19/17 [History] Clopidogrel [Plavix] 75 mg PO DAILY 12/19/17 [History] Diclofenac Sodium 1 appl TP TID 12/19/17 [History] Furosemide [Lasix] 20 mg PO DAILY 12/19/17 [History] Niacin [Niaspan] 2,000 mg PO HS 12/19/17 [History] [place]-3 Acid Ethyl Esters [Lovaza] 2 gm PO BID 12/19/17 [History] Ramipril [Altace] 5 mg PO DAILY 12/19/17 [History] Allopurinol [Zyloprim 100 MG] 100 mg PO DAILY #30 tablet 03/21/18 [Rx] Diltiazem CD (24hr) [Cardizem CD] 120 mg PO DAILY #30 cap.er.24h 03/21/18 [Rx] Allergies/Adverse Reactions: 3 Allergy/AdvReac Type Severity Reaction Status Date / Time [id number]-Hxo Reductase AdvReac Cramping Verified 03/20/18 13:06 Inhibitor of the [Statins] Muscles tramadol AdvReac Nausea Verified 03/20/18 13:06 Date of admission: 03/20/18 13:17 Primary care physician: Daniella Cosme Consults: 03/20/18 13:42 Consult to Cardiology [CONS] Routine Comment: Consulting Provider: Cardiology Jacqueline Reason for Consult: bradycardia Call Completed: Yes Anticipated date of discharge: 03/21/18 - Constitutional Vitals: Temp Pulse Resp BP Pulse Ox 97.9 F 66 16 150/82 96 03/21/18 15:17 03/21/18 15:17 03/21/18 15:17 03/21/18 15:17 03/21/18 15:17 General appearance: Present: cooperative, A&O X 3, answers questions appropriately Exam: PHYSICAL EXAMINATION: GENERAL APPEARANCE: The patient is alert, oriented and in no acute distress. HEENT: Head is normocephalic. The sinuses are nontender. Pupils are equal and reactive. The nares are patent. Oropharynx clear without lesions. NECK: Supple without lymphadenopathy. HEART: irregular rate and rhythm. LUNGS: No crackles or wheezes are heard. ABDOMEN: Soft, nontender, nondistended with good bowel sounds heard. Inguinal area is normal. EXTREMITIES: Without cyanosis, clubbing or edema. NEUROLOGICAL: Gross nonfocal. SKIN: Warm and dry without any rash. - Patient Status Disposition: Home, Self-Care Condition: Good Functional capacity at discharge: independent ambulation Overall status at discharge: patient is progressing back to baseline - Discharge Instructions Follow Up With: Daniella Cosme MD [Primary Care Provider] - - Diet and Activity Activity: increase activity as tolerated Diet: advance to your usual diet
== END 2018-03-21 16:45 | disposition home or self-care (01) ==
LOC: 3ANU 11:02 → EMEROOARM 11:02 → 3ANU 13:54
PROVIDERS: ADMIT Internal Medicine; ATTEND Internal Medicine